=== PATIENT | male | born 1990 | race Caucasian/White ===

== ENCOUNTER 2017-08-22 10:52 | Emergency (ER) | payer OTHER, SELFPAY ==
[2017-08-22 11:10] VITALS: BP 140/75; PULSE 89; RESP 18; TEMP 36.9; O2SAT 97; BMI 25.1
--- NOTE | 2017-08-22 12:03 | ED.BACK ---
HPI - Back Pain/Injury <BAYRON Casey - Last Filed: 08/22/17 22:13> General Chief Complaint: Back Pain/Injury Stated Complaint: back pain Time Seen by Provider: 08/22/17 12:01 Source: patient Mode of arrival: ambulatory Limitations: no limitations History of Present Illness HPI Narrative: Patient presents with back pain that has been going off and on for 7 years. 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 He states the only thing that has worked in the past is naproxen. He presents requesting an MRI because this pain has been going on for 7 years and nobody knows why. He states he was using naproxen, but states that is now considered a narcotic for the . He denies any incontinence, denies any urinary symptoms, and denies any anesthesia as or saddle anesthesias. The pain does radiate down the back of both legs with some tingling and he told me numbness. Patient drove himself to the ER today. He states he has already had x-rays and would like an MRI. Related Data Previous Rx's Medication Instructions Recorded polymyxin B sulf-trimethoprim 10 ml OU SEE INSTRUCTIONS #1 05/20/17 [Polytrim] methocarbamol [Robaxin] 500 mg PO Q6H PRN #20 tab 08/22/17 naproxen 500 mg PO Q12H #14 tab 08/22/17 Allergies Allergy/AdvReac Type Severity Reaction Status Date / Time No Known Allergies Allergy Uncoded 07/14/17 12:51 Review of Systems <BAYRON Casey - Last Filed: 08/22/17 22:13> Review of Systems GENERAL: See HPI HEENT: Denies sinus pain, ear pain, sore throat, difficulty swallowing, dizziness. RESPIRATORY: Denies dyspnea, cough, wheezing, hemoptysis, sputum. CARDIOVASCULAR: Denies chest pain, palpitations, orthopnea, edema, GASTROINTESTINAL: Denies nausea, vomiting, abdominal pain, diarrhea, constipation, melena. : See HPI MUSCULOSKELETAL: See HPI SKIN: Denies rash, skin lesions, or other NEUROLOGIC: Denies weakness, headache, numbness, change in speech, confusion, seizures, incoordination. PSYCHIATRIC: No concerning psychosocial issues. 12 point review of systems is negative except for those stated above Exam <Selina WilderABELINO [id number] - Last Filed: 08/22/17 22:13> Narrative Exam Narrative: GENERAL: This is a well-nourished, well-developed patient, in no distress with son at bedside. HEAD: Atraumatic. Normocephalic. No temporal or scalp tenderness. EYES: Pupils equal round and reactive. Extraocular motions intact. No scleral icterus. No injection or drainage. No nystagmus noted. ENT: Nose without bleeding, purulent drainage or septal hematoma. Throat without erythema, tonsillar hypertrophy or exudate. Uvula midline. Airway patent. NECK: Trachea midline. No JVD or lymphadenopathy. Supple, nontender, no meningeal signs. CARDIOVASCULAR: Regular rate and rhythm without murmurs, gallops, or rubs. RESPIRATORY: Clear to auscultation. Breath sounds equal bilaterally. No wheezes, rales, or rhonchi. GASTROINTESTINAL: Abdomen soft, non-tender, nondistended. No hepato-splenomegaly, or palpable masses. No guarding. No CVA tenderness bilaterally. EXTREMITIES: No clubbing, cyanosis, or edema. No joint tenderness, effusion, or edema noted. BACK: C-spine and T-spine nontender to palpation. Patient complains of pain on palpation of general lumbar area including paraspinal muscles bilaterally. No step-offs or deformities. Pain is worst on left paraspinal side lumbar area. Patient is walking gingerly with stiff gait however his gait is stable at this time. NEURO: AOx3. Strength equal upper and lower extremities bilaterally. Reflexes upper and lower extremities intact. Rectal exam refused by patient. Heel-toe walk intact. SKIN: No rash or erythema. No erythema or ecchymosis on back. Initial Vital Signs Initial Vital Signs: Vital Signs Temperature 98.5 F 08/22/17 11:10 Pulse Rate 89 08/22/17 11:10 Respiratory Rate 18 08/22/17 11:10 Blood Pressure 140/75 H 08/22/17 11:10 Pulse Oximetry 97 08/22/17 11:10 <Artie Morrison DO - Last Filed: 08/23/17 07:16> Initial Vital Signs Initial Vital Signs: Vital Signs Temperature 98.5 F 08/22/17 11:10 Pulse Rate 89 08/22/17 11:10 Respiratory Rate 18 08/22/17 11:10 Blood Pressure 140/75 H 08/22/17 11:10 Pulse Oximetry 97 08/22/17 11:10 Course <BAYRON Casey - Last Filed: 08/22/17 22:13> Orders Ordered: Discontinued Medications Ketorolac Tromethamine (Toradol) 30 mg IM NOW ONE Stop: 08/22/17 12:24 Last Admin: 08/22/17 13:01 Dose: 30 mg Reevaluation(s) Reevaluation #1: Patient again requesting MRI for back pain. States it has been going on for 7 years in nobody has told him what is going on. States his doctor told him it would be easiest to go to emergency department for MRI rather than outpatient. Time: 12:45 Reevaluation #2: Pain has improved mobility is slightly increased with administration of Toradol. Discussed options including physical therapy, chiropractor. Patient states he has used chiropractor before with success and pain relief. He states it is difficulty use physical therapy as he is out of town with the frequently. UA obtained. Time: 13:30 Vital Signs - 8 hr 08/22/17 14:19 Pulse Rate 68 Respiratory Rate 14 Blood Pressure [Left Arm] 119/71 Pulse Oximetry 100 <Artie Morrison DO - Last Filed: 08/23/17 07:16> Orders Ordered: Discontinued Medications Ketorolac Tromethamine (Toradol) 30 mg IM NOW ONE Stop: 08/22/17 12:24 Last Admin: 08/22/17 13:01 Dose: 30 mg Vital Signs - 8 hr 08/22/17 14:19 Pulse Rate 68 Respiratory Rate 14 Blood Pressure [Left Arm] 119/71 Pulse Oximetry 100 MDM - Back Pain/Injury <BAYRON Casey - Last Filed: 08/22/17 22:13> Differential Diagnosis Differential diagnosis: Likely lumbar radiculopathy, sciatica and strain of lumbar region Lab Data Attestation: I reviewed the patient's lab results. Urine is within normal limits. No signs or symptoms of urinary tract infection or pyelonephritis. Lab Results 08/22/17 Range/Units 13:30 Urine Color Yellow Urine Appearance Clear Urine pH 5.0 (4.5-8.0) Ur Specific [place] 1.020 (1.000-1.035) Urine Protein Negative (Negative) Urine Glucose (UA) Negative (Normal) g/dL Urine Ketones Negative (NEGATIVE) Urine Occult Blood Negative (Negative) Urine Nitrate Negative (NEGATIVE) Urine Bilirubin Negative (NEGATIVE) Urine Urobilinogen 0.2 (0.2) E.U./dL Ur Leukocyte Esterase Negative (NEGATIVE) Ur Culture Indicated? Cult not indicated Micro UA Comment Microscopic normal MDM Narrative Medical decision making narrative: Patient presents with 7 years of back pain that got worse yesterday while mowing the lawn. He does not have any incontinence, saddle anesthesia, and refuses a rectal exam at this point time. He repeatedly requests an MRI, stating frustration with 7 years of back pain with ???no real answer.??? However his exam is reassuring at this point time. His pain improved with medication administration. A UA was obtained to rule out any urinary causes for pain. His pain does radiate down however he does not have any red flags on exam at this point time. I suggested follow up with primary care for possibility of an outpatient imaging, physical therapy or chiropractor. Patient states that physical therapy is difficult due to his status. I discussed at length return precautions including saddle anesthesia, incontinence, priapism or any changes in weakness or numbness. We discussed a trial of muscle relaxers to see if they help as well as naproxen as he states that helped in the past. Patient stated he had no questions at this time. <Artie Morrison, DO - Last Filed: 08/23/17 07:16> Lab Data Lab Results 08/22/17 Range/Units 13:30 Urine Color Yellow Urine Appearance Clear Urine pH 5.0 (4.5-8.0) Ur Specific [place] 1.020 (1.000-1.035) Urine Protein Negative (Negative) Urine Glucose (UA) Negative (Normal) g/dL Urine Ketones Negative (NEGATIVE) Urine Occult Blood Negative (Negative) Urine Nitrate Negative (NEGATIVE) Urine Bilirubin Negative (NEGATIVE) Urine Urobilinogen 0.2 (0.2) E.U./dL Ur Leukocyte Esterase Negative (NEGATIVE) Ur Culture Indicated? Cult not indicated Micro UA Comment Microscopic normal Discharge Plan Departure Patient Disposition: Home, Self-Care Clinical Impression: Low back pain radiating to both legs Discharge Date/Time: 08/22/17 14:47 Interventions: ED Discharge Assessment Last Done: 08/22/17 14:47 Instructions: DI for Low Back Pain, DI for Back Pain With Sciatica, Activity May Be Better then Rest for Low Back Pain Recovery Activity Restrictions/Additional Instructions: You came to the emergency department today for back pain that has been going on for 7 years, made worse yesterday by mowing the lawn. Today we gave you medication as a shot for your back pain. Do not take any NSAIDs for about 8 hr after that shot. I suggest coming back to the emergency department if you have any incontinence or numbness in your saddle area. Follow up with your primary care provider in the next few days for recheck. You may need a referral for further imaging, physical therapy, for further care. Prescriptions: New methocarbamol [Robaxin] 500 mg tablet 500 mg PO Q6H PRN (Reason: muscle spasm) Qty: 20 RF: 0 naproxen 500 mg tablet 500 mg PO Q12H Qty: 14 RF: 0 No Action polymyxin B sulf-trimethoprim [Polytrim] 10 ML drops 10 ml OU SEE INSTRUCTIONS Qty: 1 RF: 0 <Artie Morrison DO - Last Filed: 08/23/17 07:16> [facility] ED Attending Jeremi Attestation: I was available for consultation during this patient's emergency department encounter
[2017-08-22 12:46] VITALS: BP 127/72; PULSE 57; RESP 18; O2SAT 100
[2017-08-22] MEDS: KETOROLAC 60 MG/2 ML VIAL 30 MG IM (13:01)
[2017-08-22 13:49] LABS: Appearance Urine UA CLEAR; Bilirubin Urine UA NEGATIVE (NEGATIVE); Color Urine UA YELLOW; Glucose Urine UA NEGATIVE (Normal); Ketones Urine UA NEGATIVE (NEGATIVE); Leukocyte Esterase Urine UA NEGATIVE (NEGATIVE); Nitrite Urine UA NEGATIVE (NEGATIVE); Occult Blood Urine UA NEGATIVE (Negative); Protein Urine UA NEGATIVE (Negative); Urobilinogen Urine UA 0.2 E.U./dL (0.2)
[2017-08-22 13:55] LABS: Culture Indicated Urine Cult Not Indicated; Urine Comments Microscopic Normal
[2017-08-22 14:19] VITALS: BP 119/71; PULSE 68; RESP 14; O2SAT 100
== END 2017-08-22 14:47 | disposition home or self-care (01) ==
PROVIDERS: Emergency Provider Nurse Practitioner Family
DX: M54.5 Low back pain (principal)
CPT/HCPCS: 81001; 96372; 99283; J1885

== ENCOUNTER 2018-03-14 21:37 | Emergency (ER) | payer OTHER, SELFPAY ==
[2018-03-14 21:39] VITALS: BP 137/73; PULSE 64; RESP 21; TEMP 36.4; O2SAT 96; BMI 25.8
--- NOTE | 2018-03-14 21:46 | DI.RAD.S_ITS ---
PROCEDURE: XR LUMBAR SPINE 2-3V INDICATIONS: low back pain, hx of back pain TECHNIQUE: 3 views of the lumbar spine were acquired. COMPARISON: None. FINDINGS: Bones: No fracture or focal osseous destruction. Mild loss of the normal lumbar lordosis. The disc spaces appear grossly preserved. Mild L5-S1 facet degeneration Soft tissues: Overlying bowel gas pattern is normal. No suspicious soft tissue calcifications. IMPRESSION: No fracture Dictated by: Juan Carlos Jameson M.D. on 03/15/2018 at 8:23 Approved by: Juan Carlos Jameson M.D. on 03/15/2018 at 8:47
--- NOTE | 2018-03-14 21:47 | ED.BACK ---
HPI - Back Pain/Injury General Chief Complaint: Back Pain/Injury Stated Complaint: GLF Time Seen by Provider: 03/14/18 21:38 Source: patient Mode of arrival: EMS Limitations: no limitations History of Present Illness HPI Narrative: This is a 27-year-old male comes to the emergency department with complaint of low back pain. Patient states he has known herniated disc in his lumbar spine. He states he had an MRI about 6 months ago. This was done through the [facility]. Patient states that tonight he had had some slight increase in back pain from his normal baseline after cleaning the house. But he was not having anything significant. He was walking around the corner and twisted and felt sudden pain in his lower back on fell to the ground. He states the pain radiates some into his left lower extremity towards the knee/calf region. Patient states it is worse with movement. He denies any new numbness or tingling he denies any loss of bowel or bladder control or saddle anesthesia. Patient denies any other symptoms currently. Related Data Previous Rx's Medication Instructions Recorded cyclobenzaprine 10 mg PO TID PRN #10 tab 03/14/18 meloxicam [Mobic] 7.5 mg PO BID #20 tab 03/14/18 Allergies Allergy/AdvReac Type Severity Reaction Status Date / Time No Known Drug Allergies Allergy Verified 03/14/18 21:44 Review of Systems Review of Systems All systems reviewed & are unremarkable except as noted in HPI and below Constitutional Denies weakness Cardiovascular Denies chest pain and Denies dyspnea Respiratory Denies dyspnea Gastrointestinal Gastrointestinal: Denies fecal incontinence Genitourinary Denies urinary incontinence Musculoskeletal Reports back pain, Reports limited range of motion, Denies muscle weakness, Denies numbness, Reports radiating pain into limb (left leg) and Denies tingling Neurologic Denies numbness, Reports radicular pain, Denies sensory deficit, Denies tingling and Denies weakness [facility] History Lumbar herniated disc (Acute) Social History Smoking Status: Current every day smoker Exam Narrative Exam Narrative: GENERAL: Alert and oriented x three, well-nourished, well-appearing male in moderate distress HEENT: Head normocephalic, atraumatic, EOMI, pupils reactive, face symmetric, moist mucous membranes NECK: Supple, full range of motion CARDIOVASCULAR: Regular rate and rhythm without murmurs, rubs or gallops. RESPIRATORY: Breath sounds equal bilaterally, no wheezes rales or rhonchi. ABDOMEN: Soft, nontender. Normoactive bowel sounds all 4 quadrants. No guarding or rebound, rigidity, no mass : No CVA tenderness BACK: No cervical, thoracic or lumbar vertebral point tenderness. Patient has decreased range of motion, patient is able to roll over on the bed but is quite uncomfortable. Patient's gait is [antalgic/normal]. Rectal exam is deferred. Muscle strength is 5/5 in lower extremities, DTRs are 2/4 and lower extremities. Dorsalis pedis and tibialis pulses are 2+ and lower extremities. Sensation is intact in the lower extremities. EXTREMITIES: Normal range of motion of lower extremities. No clubbing or edema. Neurovascularly intact NEUROLOGICAL: Cranial nerves II through XII grossly intact. Moving all extremities SKIN: Warm, dry, no petechiae, no rashes or lesions. Initial Vital Signs Initial Vital Signs: Vital Signs Temperature 97.6 F 03/14/18 21:39 Pulse Rate 64 03/14/18 21:39 Respiratory Rate 21 03/14/18 21:39 Blood Pressure 137/73 03/14/18 21:39 Pulse Oximetry 96 03/14/18 21:39 Course Orders Ordered: ED Orders 03/14/18 21:46 XR lumbar spine 2-3V Stat Discontinued Medications Diazepam (Valium) 2 mg PO NOW ONE Stop: 03/14/18 21:47 Last Admin: 03/14/18 22:19 Dose: Diazepam (Valium) 2.5 mg PO NOW ONE Stop: 03/14/18 22:19 Last Admin: 03/14/18 22:23 Dose: 2.5 mg Ketorolac Tromethamine (Toradol) 60 mg IM NOW ONE Stop: 03/14/18 21:47 Last Admin: 03/14/18 21:51 Dose: 60 mg Vital Signs - 8 hr 03/14/18 21:39 03/14/18 22:40 Temperature 97.6 F Pulse Rate 64 64 Respiratory Rate 21 12 Blood Pressure 137/73 124/64 Pulse Oximetry 96 94 MDM - Back Pain/Injury Imaging Data L-spine Xray: Attestation: I personally reviewed and interpreted this imaging study as follows: My impression: no acute process, patient has normal alignment, no fractures noted. MDM Narrative Medical decision making narrative: Patient more comfortable especially when still, just received muscle relaxant. Reviewed Xray findings with patient. Plan for follow up with primary care if no improvement over next week. Patient ambulated out of the department without assistance. Discharge Plan Departure Patient Disposition: Home Clinical Impression: Acute exacerbation of chronic low back pain Discharge Date/Time: 03/14/18 22:41 Interventions: ED Discharge Assessment Last Done: 03/14/18 22:40 Instructions: DI for Low Back Pain Activity Restrictions/Additional Instructions: Follow-up with your primary care provider in the next 5-7 days for recheck. Take medications as prescribed, these medications can make you sleepy do not drive, perform hazards activities or make any major decisions while taking these medications. You may take mobic every 12 hours as needed for pain. You may also take Tylenol up to a 1000 mg every 8 hr as needed for pain in combination. Return to emergency department for new weakness, loss of sensation, loss of bowel or bladder control, rapidly worsening back pain or other new or concerning symptoms. Prescriptions: New cyclobenzaprine 10 mg tablet 10 mg PO TID PRN (Reason: muscle spasm) Qty: 10 RF: 0 meloxicam [Mobic] 7.5 mg tablet 7.5 mg PO BID Qty: 20 RF: 0
[2018-03-14] MEDS: KETOROLAC 60 MG/2 ML VIAL IM (21:51)
[2018-03-14] MEDS: diazePAM 5 MG TABLET 2.5 MG PO (22:23)
[2018-03-14 22:40] VITALS: BP 124/64; PULSE 64; RESP 12; O2SAT 94
== END 2018-03-14 22:41 | disposition home or self-care (01) ==
PROVIDERS: Emergency Provider Emergency Medicine
DX: M54.5 Low back pain (principal); G89.29 Other chronic pain
CPT/HCPCS: 72100; 96372; 99282; 99283; J1885

== ENCOUNTER → 2018-08-31 08:03 | Outpatient (CLI) | payer OTHER, SELFPAY ==
--- NOTE | 2018-08-31 | DI.MRI.S_ITS ---
PROCEDURE: MR LUMBAR SPINE WO CON INDICATIONS: LUMBAR REGION RADICULOPATHY TECHNIQUE: Noncontrast sagittal T1 spin echo and T2 fast echo, sagittal STIR, axial T1 and T2 fast spin echo through the lumbar spine. In cases with scoliosis, additional coronal T2 fast spin echo may be performed. COMPARISON: [facility], CR, XR LUMBAR SPINE 2-3V, 03/14/2018, 22:00. FINDINGS: Image quality: Diagnostic Alignment and Curvature: There is normal bony alignment. Bone Marrow: Marrow is of normal overall signal. No acute vertebral body compression fractures. Spinal Cord: Conus medullaris terminates at the L1 level. Visualized cord demonstrates normal signal and size. Paraspinous Soft Tissues: No paravertebral masses. T12-L1: Normal appearance. L1-L2: Normal appearance. L2-L3: Normal appearance. L3-L4: Normal appearance. L4-L5: Normal appearance. L5-S1: Mild loss of disc height is seen. Loss of disc signal is seen. There is a focal annular fissure seen posteriorly. Mild generalized disc bulge is seen. Mild facet joint hypertrophy is seen. There is mild left-sided and no right-sided neural foraminal narrowing seen. No significant central canal narrowing is seen. IMPRESSION: Focal L5-S1 degenerative change. Dictated by: Koffi Mendoza M.D. on 08/31/2018 at 9:58 Approved by: Koffi Mendoza M.D. on 08/31/2018 at 10:00
== END ==
PROVIDERS: Visit Provider Student in an Organized Health Care Education/Training Program
DX: M47.27 Other spondylosis with radiculopathy, lumbosacral region (principal)
CPT/HCPCS: 72148